=== PATIENT | female | born 1975 | race Caucasian/White ===

== ENCOUNTER → 2018-04-14 08:40 | Outpatient (CLI) | payer OTHER, SELFPAY ==
[2018-04-14 09:12] LABS: Add Manual Diff / Slide Review NO; Basophils Percent Auto 0.9 % (0-2); Eosinophils Percent Auto 3.8 % (2-4); Hematocrit 39.5 % (36-46); Hemoglobin 13.6 g/dL (12.0-16.0); Lymphocytes Percent Auto 27.9 % (25-40); Mean Corpuscular HGB Conc 34.5 % (30-36); Mean Corpuscular Volume 92.7 fL (80-100); Monocytes Percent Auto 8.2 % (3-14); Neutrophils Absolute Auto 2600 /uL (3000-5900); Neutrophils Percent Auto 59.2 % (50-75); Platelet Count 252 X10^3/uL (150-400); Red Blood Cell Count 4.26 X10^6/uL (4.0-5.2); Red Cell Distribution Width 12.9 % (11.6-14.8); White Blood Cell Count 4.4 X10^3/uL (4.5-11.0)
[2018-04-14 09:39] LABS: Alanine Aminotransferase 26 IU/L (9-52); Albumin 4.6 g/dL (3.5-5.0); Albumin Globulin Ratio 1.6 (1.0-2.8); Alkaline Phosphatase 42 U/L (38-126); Aspartate Aminotransferase 25 IU/L (14-36); BUN Creatinine Ratio 24.3 (6-22); Bilirubin Total 1.1 mg/dL (0.2-1.3); Blood Urea Nitrogen 17 mg/dL (7-17); Calcium 9.3 mg/dL (8.4-10.2); Carbon Dioxide 30 mmol/L (22-32); Chloride 103 mmol/L (98-107); Cholesterol 225 mg/dL (140-199); Estimated Glomerular Filt Rate > 60.0 mL/min (>60); Globulin 2.8 g/dL (1.7-4.1); Glucose 88 mg/dL (70-100); HDL Cholesterol 76 mg/dL (40-60); HEMOLYSIS < 15 (0-50); LDL Cholesterol Calculated 138 mg/dL (<100); Potassium 4.7 mmol/L (3.4-5.1); Sodium 141 mmol/L (137-145); Total Protein 7.4 g/dL (6.3-8.2); Triglycerides 56 mg/dL (35-150)
[2018-04-14 10:15] LABS: TSH w/ Reflex to FT4 1.23 uIU/mL (0.47-4.68)
[2018-04-19 11:37] LABS: (tTG) Ab, IgA < 1 U/mL
== END ==
PROVIDERS: PCP Family Medicine; Visit Provider Family Medicine
DX: Z00.00 Encounter for general adult medical examination without abnormal findings (principal)
CPT/HCPCS: 36415; 80053; 80061; 83516; 84443; 85025; 86255

== ENCOUNTER → 2018-05-09 12:21 | Outpatient (CLI) | payer OTHER, SELFPAY ==
--- NOTE | 2018-05-09 | DI.RAD.S_ITS ---
PROCEDURE: XR HAND RT 2V INDICATIONS: bilateral hand pain TECHNIQUE: 2 views of the hand(s) acquired. COMPARISON: None. FINDINGS: Bones: No fractures or dislocations. Carpal bones are normally aligned. No suspicious bony lesions. Soft tissues: No suspicious soft tissue calcifications. IMPRESSION: No trauma to the right hand is seen. Dictated by: Eugenio Perez M.D. on 05/09/2018 at 13:25 Approved by: Eugenio Perez M.D. on 05/09/2018 at 13:25
--- NOTE | 2018-05-09 | DI.RAD.S_ITS ---
PROCEDURE: XR HAND LT 2V INDICATIONS: bilateral hand pain TECHNIQUE: 2 views of the hand(s) acquired. COMPARISON: None. FINDINGS: Bones: No fractures or dislocations. Carpal bones are normally aligned. No suspicious bony lesions. Soft tissues: No suspicious soft tissue calcifications. IMPRESSION: Source of pain is not seen, no trauma found. Dictated by: Eugenio Perez M.D. on 05/09/2018 at 13:26 Approved by: Eugenio Perez M.D. on 05/09/2018 at 13:26
== END ==
PROVIDERS: PCP Family Medicine; Visit Provider Internal Medicine Rheumatology
DX: M79.641 Pain in right hand (principal); M79.642 Pain in left hand
CPT/HCPCS: 73120

== ENCOUNTER → 2018-06-07 10:37 | Outpatient (CLI) | payer OTHER, SELFPAY ==
--- NOTE | 2018-06-07 10:37 | DI.MG.S_ITS ---
BILATERAL DIGITAL SCREENING MAMMOGRAM 3D/2D WITH CAD WITH AUGMENTATION: 06/07/2018 CLINICAL: Routine screening. Baseline exam. Family history of breast cancer. No prior exams were available for comparison. The tissue of both breasts is heterogeneously dense. This may lower the sensitivity of mammography. Current study was also evaluated with a Computer Aided Detection (CAD) system. There is an oval equal density focal asymmetry with an indistinct margin in the left breast at 1 o'clock middle depth. No other significant masses, calcifications, or other findings are seen in either breast. IMPRESSION: INCOMPLETE: NEEDS ADDITIONAL IMAGING EVALUATION The oval equal density focal asymmetry in the left breast is indeterminate. Mediolateral and spot compression views as well as additional views with possible ultrasound are recommended. This exam was interpreted at Station ID: [id number]. NOTE: For mammograms, a report in lay terms will be sent to the patient. Approximately 15% of breast malignancies will not be visualized mammographically. In the management of a palpable breast mass, a negative mammogram must not discourage biopsy of a clinically suspicious lesion. Electronically Signed By: Bryan [email or web address]:06/07/2018 17:14:16 letter sent: Additional Imaging Needed ACR BI-RADS Category 0: Incomplete [id number]
== END ==
PROVIDERS: Family Provider Family Medicine; PCP Family Medicine; Visit Provider Family Medicine
DX: Z12.31 Encounter for screening mammogram for malignant neoplasm of breast (principal); Z80.3 Family history of malignant neoplasm of breast
CPT/HCPCS: 77063; 77067

== ENCOUNTER → 2018-06-27 08:57 | Outpatient (CLI) | payer OTHER, SELFPAY ==
--- NOTE | 2018-06-27 | DI.MG.S_ITS ---
UNILATERAL LEFT DIGITAL DIAGNOSTIC MAMMOGRAM 3D/2D WITH ADDITIONAL VIEWS: 06/27/2018 CLINICAL: Additional evaluation requested from prior study. Comparison is made to exam dated: 06/07/2018 [facility]. The tissue of left breast is heterogeneously dense. This may lower the sensitivity of mammography. Previously noted oval equal density focal asymmetry with an indistinct margin in the left breast at 1 o'clock middle depth on comparison screening mammogram persists with additional views. IMPRESSION: INCOMPLETE: NEEDS ADDITIONAL IMAGING EVALUATION Previously noted oval equal density focal asymmetry with an indistinct margin in the left breast at 1 o'clock middle depth on comparison screening mammogram persists with additional views. A targeted ultrasound is recommended and will be performed immediately following this exam. This exam was interpreted at Station ID: [id number]. NOTE: For mammograms, a report in lay terms will be sent to the patient. Approximately 15% of breast malignancies will not be visualized mammographically. In the management of a palpable breast mass, a negative mammogram must not discourage biopsy of a clinically suspicious lesion. Electronically Signed By: Paolo Almonte M.D. ecl/:06/27/2018 09:54:55 letter sent: Additional Imaging Needed ACR BI-RADS Category 0: Incomplete [id number]
--- NOTE | 2018-06-27 08:58 | DI.US.S_ITS ---
LIMITED ULTRASOUND OF LEFT BREAST: 06/27/2018 CLINICAL: Patient returns today to evaluate an asymmetry in the left breast. Comparison is made to exams dated: 06/27/2018 mammogram and 06/07/2018 mammogram - [facility]. Real-time and Doppler ultrasound of the left breast upper outer quadrant were performed. Ortega scale images of the real-time examination were reviewed. There is 0.6 cm x 0.5 cm x 0.5 cm oval irregular probable cyst in the left breast at 2 o'clock 7 cm from the nipple. This oval irregular cyst is hypoechoic with internal echoes and posterior acoustic enhancement. Color flow imaging demonstrates that there is no vascularity present. This may or may not correspond to the asymmetry seen on comparison mammograms. IMPRESSION: PROBABLY BENIGN The 0.6 cm x 0.5 cm x 0.5 cm oval cyst in the left breast likely represents a complicated cyst and is probably benign. A follow-up mammogram and an ultrasound in 6 months is recommended to demonstrate stability. The patient is advised to monitor her breasts and to return sooner for re-evaluation should she feel anything grow or change. This exam was interpreted at Station ID: [id number]. Electronically Signed By: Paolo Almonte M.D. ecl/:06/27/2018 09:55:41 letter sent: Followup Recommended Ultrasound BI-RADS: 3 Probably benign
== END ==
PROVIDERS: Family Provider Family Medicine; PCP Family Medicine; Visit Provider Family Medicine
DX: R92.8 Other abnormal and inconclusive findings on diagnostic imaging of breast (principal); N60.02 Solitary cyst of left breast
CPT/HCPCS: 76642; 77065; G0279